=== PATIENT | male | born 1960 | race Caucasian/White ===

== ENCOUNTER 2021-02-07 08:24 | Emergency (ER) | payer OTHER ==
[2021-02-07 10:11] LABS: BASOPHIL 0.3 % (0-2); EOSINOPHIL 4.9 % (0-5); HCT 54.3 % (42.0-52.0); LYMPHOCYTE 31.1 % (15-48); MCHC 33.3 g/dL (32.0-36.0); MONOCYTE 8.5 % (0-12); MPV 10.4 fL (6.0-9.5); NEUTROPHIL 54.9 % (41-80); NRBC 0; PLT 128 K/uL (150-400); RBC 5.84 M/uL (4.70-6.00); RDW 14.6 % (11.5-14.0); WBC 5.9 K/uL (4.0-10.5)
[2021-02-07 10:26] LABS: HGB 18.1 g/dl (13.2-18.0)
[2021-02-07 10:32] LABS: ALBUMIN 3.6 g/dL (3.4-5.0); ALKALINE PHOSHATASE 74 U/L (46-116); ALT 28 U/L (16-63); AST 11 U/L (15-37); BILIRUBIN - TOTAL 0.4 mg/dL (0.2-1.0); BUN 15 mg/dL (7-18); C-REACTIVE PROTEIN < 0.20 mg/dL (<=0.90); CHLORIDE 104 mmol/L (98-107); CO2 (BICARBONATE) 27 mmol/L (21-32); GLOBULIN (CALCULATION) 3.2 g/dL; GLUCOSE 198 mg/dL (74-106); TOTAL PROTEIN 6.8 g/dL (6.4-8.2)
== END 2021-02-07 12:26 | disposition home or self-care (01) ==
LOC: FER 08:24
PROVIDERS: Internal Medicine
DX: S06.0X9A Concussion with loss of consciousness of unspecified duration, initial encounter (principal); M54.2 Cervicalgia; E11.9 Type 2 diabetes mellitus without complications; I10 Essential (primary) hypertension; F17.210 Nicotine dependence, cigarettes, uncomplicated; Z79.84 Long term (current) use of oral hypoglycemic drugs; Z95.1 Presence of aortocoronary bypass graft; W18.09XA Striking against other object with subsequent fall, initial encounter
CPT/HCPCS: 36415; 70450; 80053; 85025; 86140; J1885